=== PATIENT | male | born 1965 | race African-American/Black ===

== ENCOUNTER 2016-10-25 14:03 | Observation (INO) | payer BC ==
[~2016-10-25] VITALS: Ht 177.8 cm; Wt 129.8 kg
[~2016-10-25 14:03] MED LIST: ASPIR 8181 M1 PO; CENTRUM SILVER1 EAC3 PO; GABAPENTIN300 MG PO; GLUCOPHAGE1000 MG PO; LANTUS 10100 UNITS/ SC; LANTUS 3 M100 UNITS1 SC; LIPITOR40 MG PO; LISINOPRIL40 MG PO; MOTRIN800 MG PO; NOVOLOG MI100 UNIT/4 SC; NOVOLOG MI100 UNIT/M PO; PERCOCET 5/31 TABLET PO; ZESTRIL40 MG PO
[2016-10-25 15:17] LABS: HEMATOCRIT 44.8 % (38.0-50.0); MCH 29.2 PG (29.0-34.0); MCHC 33.5 G/DL (30.0-36.0); MCV 87.3 FL (86-99); MEAN PLAT.VOLUME 11.7 uM^3 (9.0-12.4); PLATELET COUNT 249 K/uL (156-360); RBC DIS.WIDTH-CV 13.3 % (11.8-14.6); RBC DIS.WIDTH-SD 42.5 % (39-53); RED BLOOD COUNT 5.13 M/uL (4.00-5.50); WHITE BLOOD COUNT 5.6 K/uL (4.1-10.2)
[2016-10-25 15:25] LABS: CHLORIDE 103 mEq/L (99-109); POTASSIUM 4.6 mEq/L (3.7-5.4); SODIUM 135 mEq/L (136-147)
[2016-10-25 15:27] LABS: GLUCOSE 296 mg/dL (70-99)
[2016-10-25 15:28] LABS: ANION GAP 9 MEQ/L (2-14)
[2016-10-25 15:29] LABS: TOTAL BILIRUBIN 0.5 mg/dL (0.0-1.0)
[2016-10-25 15:30] LABS: D-DIMER ELISA 2.56 mg/L FEU (< 0.57); PROTHROMBIN TIME 10.3 (9.2-11.2); PTT 27.9 (25-32)
[2016-10-25 15:31] LABS: ALKALINE PHOSPHATASE 66 IU/L (3-129); GFR ESTIMATE (CALCULATED) > 59 mL/min/
[2016-10-25 15:32] LABS: UREA NITROGEN (BUN) 21 mg/dL (9-23)
[2016-10-25 15:34] LABS: LIPASE 8 U/L (1.0-51.0)
[2016-10-25 15:38] LABS: TROP-I INTERPRETATION NEGATIVE; TROPONIN-I < 0.01 ng/mL (0.0-0.30)
[2016-10-25] MEDS ORDERED: TRESIBA FL200 UNIT/1 SC (19:04)
[2016-10-25] MEDS ORDERED: NOVOLOG PE100 UNITS/ SC (19:06)
[2016-10-25] MEDS ORDERED: METOPROLOL SUC100 MG PO (19:06)
[2016-10-25] MEDS ORDERED: VITAMIN D2000 UNIT PO (19:08)
[2016-10-25] MEDS ORDERED: ATENOLOL25 MG PO (19:08)
[2016-10-25] MEDS ORDERED: IBUPROFEN800 MG PO (19:09)
[2016-10-25] MEDS ORDERED: DICLOFENAC SOD100 G1 TP (19:09)
[2016-10-25 22:22] VITALS: BP 185/106
[2016-10-25 23:46] LABS: POINT-OF-CARE METER ID UU13113831
[2016-10-26 01:39] LABS: TROP-I INTERPRETATION NEGATIVE; TROPONIN-I < 0.01 ng/mL (0.0-0.30)
[2016-10-26 03:51] VITALS: BP 143/89
[2016-10-26 06:38] VITALS: BP 141/82
[2016-10-26 08:26] LABS: POINT-OF-CARE METER ID UU13113831
[2016-10-26 09:11] LABS: TROP-I INTERPRETATION NEGATIVE; TROPONIN-I < 0.01 ng/mL (0.0-0.30)
[2016-10-26 13:29] LABS: MCHC 32.7 G/DL (30.0-36.0); MCV 88.7 FL (86-99); MEAN PLAT.VOLUME 12.5 uM^3 (9.0-12.4); PLATELET COUNT 257 K/uL (156-360); RBC DIS.WIDTH-CV 13.6 % (11.8-14.6); RBC DIS.WIDTH-SD 43.8 % (39-53); RED BLOOD COUNT 4.96 M/uL (4.00-5.50); WHITE BLOOD COUNT 4.3 K/uL (4.1-10.2)
[2016-10-26 13:36] LABS: CHLORIDE 104 mEq/L (99-109); POTASSIUM 4.8 mEq/L (3.7-5.4); SODIUM 136 mEq/L (136-147)
[2016-10-26 13:37] LABS: GLUCOSE 250 mg/dL (70-99)
[2016-10-26 13:39] LABS: ANION GAP 10 MEQ/L (2-14)
[2016-10-26 13:41] LABS: GFR ESTIMATE (CALCULATED) > 59 mL/min/
[2016-10-26 13:42] LABS: UREA NITROGEN (BUN) 16 mg/dL (9-23)
== END 2016-10-26 13:10 | disposition home or self-care (01) ==
LOC: EME 14:03 → 5WEST 21:12 → EDOF 21:12 → 5WEST 22:18
PROVIDERS: Emergency Medicine; Hospitalist; Nurse Practitioner Adult Health
DX: R07.9 Chest pain, unspecified (principal); R94.31 Abnormal electrocardiogram [ECG] [EKG]; I27.2 Other secondary pulmonary hypertension; I10 Essential (primary) hypertension; E11.9 Type 2 diabetes mellitus without complications; E78.5 Hyperlipidemia, unspecified; G62.9 Polyneuropathy, unspecified; E66.01 Morbid (severe) obesity due to excess calories; Z79.4 Long term (current) use of insulin
CPT/HCPCS: 71275; 80048; 80053; 82948; 83690; 84484; 85027; 85379; 85610; 85730; 93005; 93306; 93970; 99281; 99285; G0378; J1650; J1815; J7030